=== PATIENT | male | born 1950 | race Caucasian/White ===

== ENCOUNTER 2018-10-21 08:48 | Emergency (ER) | payer MEDICARE, BC ==
[~2018-10-21] VITALS: Ht 185.4 cm; Wt 90.9 kg
[~2018-10-21 08:48] MED LIST: ADVIL200 MG PO; HYDRODIURIL50 MG PO; MAGNESIUM CHELA27 MG; MIDAMOR 5MG TAB5 MG PO; NASACORT OTC NS; NORMODYNE200 MG PO
[2018-10-21] MEDS ORDERED: CALCIUM CARBON650 M2 (08:57)
[2018-10-21 09:53] LABS: BASO # 0.1 (0.0-0.2); BASO % 0.5 % (0.0-2.0); EOS # 0.2 (0.0-0.7); EOS % 2.3 % (0-4.0); GRAN # 7.1 (1.4-6.5); HEMATOCRIT 39.3 % (42.0-52.0); HEMOGLOBIN 13.1 g/dl (13.5-18.0); LYMPH # 1.8 (1.2-3.4); LYMPH % 17.9 % (20.0-51.0); MEAN CELL VOLUME 90 fl (80.0-100.0); MEAN CORPUSCULAR HEMOGLOBIN 30 pg (27.0-31.0); MEAN CORPUSCULAR HGB CONC 33 g/dl (33.0-37.0); MEAN PLATELET VOLUME 8.8 fl (7.4-10.4); MONO # 0.6 (0.1-0.6); MONO % 6.4 % (1.7-9.3); PLATELET COUNT 325 K/mm3 (130-400); RED BLOOD COUNT 4.36 M/mm3 (4.20-5.60)
[2018-10-21 10:03] LABS: ALBUMIN 3.5 gm/dL (3.5-5.0); BILIRUBIN,TOTAL 0.5 mg/dL (0.0-1.0); CREATININE, serum 0.87 mg/dL (0.66-1.25); POTASSIUM 4.1 mmol/L (3.4-5.0); TOTAL PROTEIN 6.4 gm/dL (6.4-8.2)
[2018-10-21 11:28] VITALS: BP 134/72; PULSE 71
== END 2018-10-21 11:41 | disposition home or self-care (01) ==
LOC: COL.ER 08:48
PROVIDERS: Emergency Medicine
DX: R04.0 Epistaxis (principal); E11.9 Type 2 diabetes mellitus without complications; I25.10 Atherosclerotic heart disease of native coronary artery without angina pectoris; I10 Essential (primary) hypertension
CPT/HCPCS: J7030

== ENCOUNTER → 2019-12-16 | Outpatient (CLI) | payer MEDICARE, BC ==
[~2019-12-16] MED LIST changes: +CALCIUM CARBON650 M2
== END ==
LOC: COL.LAB 10:21
DX: C61 Malignant neoplasm of prostate (principal)